=== PATIENT | male | born 1935 | race Caucasian/White ===

== ENCOUNTER 2017-10-29 11:46 | Emergency (ER) | payer OTHER ==
[~2017-10-29] VITALS: Ht 180.3 cm; Wt 86.1 kg
[~2017-10-29 11:46] MED LIST: AMARYL2 MG PO; ASPIRIN81 M1 PO; CARVEDILOL12.5 MG PO; COREG25 MG PO; COUMADIN,JANTOVE1 MG PO; CRESTOR40 MG PO; ENDOCET 5-3251 EACH PO; GLUCOPHAGE1000 MG PO; HYDROCHLOROTH12.5 M1 PO; Hydrodiuril,Oretic,E PO; LOTENSIN40 MG PO; METFORMIN HCL500 MG PO; NITROSTAT,NITR0.4 M1 SL; OxyCODONE PO; SENOKOT S,PE1 TABLET PO; Tylenol Regular Stre PO
[2017-10-29] MEDS ORDERED: ULTRACET1 TABLET PO (18:01)
[2017-10-29 18:53] VITALS: BP 154/87
== END 2017-10-29 18:54 | disposition home or self-care (01) ==
LOC: EME 11:46
DX: R51 Headache (principal); H05.89 Other disorders of orbit; I10 Essential (primary) hypertension; Z79.84 Long term (current) use of oral hypoglycemic drugs; Z79.82 Long term (current) use of aspirin
CPT/HCPCS: 70450; 85651; 99281; 99283